=== PATIENT | female | born 1955 | race Caucasian/White ===

== ENCOUNTER → 2020-02-01 | Outpatient (CLI) | payer BC | LOC: MC.RAD 10:35 | DX: Z12.31 Encounter for screening mammogram for malignant neoplasm of breast (principal) ==

== ENCOUNTER 2020-12-26 07:44 | Day surgery (SDC) | payer BC ==
[~2020-12-26] VITALS: Ht 162.6 cm; Wt 64.5 kg
[2020-12-26 08:40] VITALS: BP 131/98; PULSE 85; TEMP 96.4
[2020-12-26] MEDS ORDERED: CYANOCOBAL1000 MCG/1 IM (08:47)
[2020-12-26] MEDS ORDERED: MAXALT MLT10 MG/TAB PO (08:47)
[2020-12-26] MEDS ORDERED: STELARA90 MG/ML SQ (08:48)
[2020-12-26] MEDS ORDERED: IMURAN 50MG TAB50 MG PO (08:48)
[2020-12-26] MEDS ORDERED: COZAAR 25MG25 MG/TAB PO (08:49)
[2020-12-26] MEDS ORDERED: EFFEXOR XR75 MG/CAP PO (08:59)
[2020-12-26] MEDS ORDERED: TOPAMAX 100MG100 M1 PO (08:59)
[2020-12-26] MEDS ORDERED: VITAMIND3 5000 PO (09:00)
[2020-12-26] MEDS ORDERED: ANTI-DIARRHEAL2 MG PO (09:00)
[2020-12-26] MEDS ORDERED: CALCIUM 600-D 61 TAB PO (09:01)
[2020-12-26] MEDS ORDERED: OCUVITE1 TA1 PO (09:02)
[2020-12-26] MEDS ORDERED: FISH OIL1000 MG PO (09:04)
[2020-12-26 09:45] VITALS: BP 108/92; PULSE 81; TEMP 97.7
--- NOTE | 2020-12-26 09:45 | NUR ---
4185- PATIENT BROUGHT BACK TO ENDO ROOM 4 VIA CART. PLACED ON MONITORS, VITAL SIGNS STABLE. MATTIE RN AT BEDSIDE FOR REPORT. AT BEDSIDE TO DRIVE PATIENT HOME. DENIES PAIN OR NAUSEA. IV INFUSING INTO RIGHT AC WITHOUT DIFFICULTY. PATIENT REQUESTS WATER AND MUFFIN. CALL [facility] WITHIN REACH, WARM BLANKET PROVIDED. WILL MONITOR.
[2020-12-26 10:00] VITALS: BP 106/89; PULSE 85
[2020-12-26 10:15] VITALS: BP 127/79; PULSE 83
--- NOTE | 2020-12-26 10:15 | NUR ---
VITAL SIGNS STABLE. PATIENT TOLERATING FOOD AND DRINK WITHOUT DIFFICULTY. DR. BARBOSA AT BEDSIDE TO DISCUSS FINDINGS. PATIENT STATES SHE WOULD LIKE TO GO HOME. IV REMOVED, INTACT. PATIENT TO GET DRESSED AT THIS TIME.
--- NOTE | 2020-12-26 10:30 | NUR ---
DISCHARGE INSTRUCTIONS REVIEWED WITH PATIENT AND FAMILY. OFFICE NUMBER PROVIDED. BROUGHT DOWN TO LOBBY VIA WHEEL CHAIR. PATIENT TO BE DRIVEN HOME BY . ALL BELONGINGS IN HAND.
== END 2020-12-26 10:30 | disposition home or self-care (01) ==
LOC: SDCO 07:44
DX: K56.699 Other intestinal obstruction unspecified as to partial versus complete obstruction (principal); K62.4 Stenosis of anus and rectum; K63.3 Ulcer of intestine; K50.80 Crohn's disease of both small and large intestine without complications; I10 Essential (primary) hypertension; G43.909 Migraine, unspecified, not intractable, without status migrainosus; E56.9 Vitamin deficiency, unspecified; F41.9 Anxiety disorder, unspecified; Z98.0 Intestinal bypass and anastomosis status; Z79.899 Other long term (current) drug therapy
CPT/HCPCS: J2704; J7120

== ENCOUNTER → 2023-03-25 | Outpatient (CLI) | payer MEDICARE, OTHER ==
[~2023-03-25] MED LIST: ANTI-DIARRHEAL2 MG PO; CALCIUM 600-D 61 TAB PO; COZAAR 25MG25 MG/TAB PO; CYANOCOBAL1000 MCG/1 IM; EFFEXOR XR75 MG/CAP PO; FISH OIL1000 MG PO; IMURAN 50MG TAB50 MG PO; MAXALT MLT10 MG/TAB PO; OCUVITE1 TA1 PO; STELARA90 MG/ML SQ; TOPAMAX 100MG100 M1 PO; VITAMIND3 5000 PO
== END ==
LOC: MC.RAD 11:03
DX: Z12.31 Encounter for screening mammogram for malignant neoplasm of breast (principal)

== ENCOUNTER 2023-05-14 13:40 | Outpatient (RCR) | payer MEDICARE, OTHER ==
[~2023-05-14] VITALS: Ht 162.6 cm; Wt 62.3 kg
[2023-05-14] MEDS ORDERED: Romosozumab-aqqg 210 MG/2.34 ML 2-Syringe KIT SQ ONE (14:00)
[2023-05-14] MEDS ORDERED: EVENITY (2210 MG/2.3 SQ (14:36)
[2023-05-14 14:40] VITALS: BP 160/85; PULSE 90; TEMP 98.5
== END 2023-05-14 14:30 | disposition home or self-care (01) ==
LOC: EUO 13:40
DX: M81.0 Age-related osteoporosis without current pathological fracture (principal)
CPT/HCPCS: J3111

== ENCOUNTER 2023-06-17 20:03 | Inpatient (IN) | payer MEDICARE, OTHER ==
[~2023-06-17] VITALS: Ht 165.1 cm; Wt 61.5 kg
[~2023-06-17 20:03] MED LIST changes: +EVENITY (2210 MG/2.3 SQ
[2023-06-17 20:30] LABS: BASO # 0.1 K/mm3 (0.0-0.2); BASO % 0.7 % (0.0-2.0); EOS # 0.1 K/mm3 (0.0-0.7); EOS % 0.9 % (0.0-4.0); GRAN % 73.7 % (42.2-75.2); HEMATOCRIT 48.8 % (37.0-47.0); HEMOGLOBIN 16.6 g/dl (12.5-16.0); LYMPH # 2.5 K/mm3 (1.2-3.4); LYMPH % 16.6 % (20.0-51.0); MEAN CELL VOLUME 94 fl (80.0-100.0); MEAN CORPUSCULAR HEMOGLOBIN 32 pg (27-31); MEAN CORPUSCULAR HGB CONC 34 g/dl (33.0-37.0); MEAN PLATELET VOLUME 9.4 fl (7.4-10.4); MONO # 1.1 K/mm3 (0.1-0.6); MONO % 7.2 % (1.7-9.3); PLATELET COUNT 305 K/mm3 (130-400); RED BLOOD COUNT 5.21 M/mm3 (4.10-5.30)
[2023-06-17] MEDS ORDERED: LR 1,000 ML IV ONE (20:30)
[2023-06-17] MEDS ORDERED: Ondansetron 4 MG/2 ML VIAL IV ONE (20:30)
[2023-06-17] MEDS ORDERED: Morphine 4 MG/ML VIAL IV ONE (20:30)
[2023-06-17 20:56] LABS: ALBUMIN 4.2 g/dL (3.4-4.8); BILIRUBIN,TOTAL 0.6 mg/dL (0.2-1.2); CALCIUM 9.2 mg/dL (8.4-10.2); CREATININE, serum 0.86 mg/dL (0.57-1.11); POTASSIUM 3.6 mEq/L (3.5-4.5); TOTAL PROTEIN 7.3 g/dl (6.2-8.1)
[2023-06-17 21:00] VITALS: BP_SYST 157
[2023-06-17] MEDS ORDERED: NS 50 ML IV SCH (21:07)
[2023-06-17] MEDS ORDERED: Iohexol 300 - 100 ML VIAL IV ONE (21:07)
[2023-06-17] MEDS ORDERED: methylPREDNISolone Sod Succ 40 MG/ML VIAL IV ONE (22:15)
[2023-06-17] MEDS ORDERED: metroNIDAZOLE 100 ML IV ONE (22:15)
[2023-06-17] MEDS ORDERED: methylPREDNISolone Sod Succ 40 MG/ML VIAL IV SCH (22:30)
[2023-06-17] MEDS ORDERED: *Potassium Replacement Protocol MC SCH (22:30)
[2023-06-17] MEDS ORDERED: Potassium Chloride 100 ML IV SCH (22:30)
[2023-06-17] MEDS ORDERED: LR 1,000 ML IV SCH (22:30)
[2023-06-17] MEDS ORDERED: Morphine 4 MG/ML VIAL IV PRN (22:45)
--- NOTE | 2023-06-17 23:34 | NUR ---
pt arrived to room 347 at 2315. pt scooted to the bed without issue. pt vital signs stable. pt ambulated to bathroom with sba and steady gait. pt ivf running to left ac iv without issue. pt admission, physical assessment, and med rec complete. call light in reach. all needs met at this time.
[2023-06-17 23:36] VITALS: BP 157/77; PULSE 94; TEMP 98.2
[2023-06-17 23:37] VITALS: BP_SYST 157
[2023-06-18] VITALS (12 sets, daily range): BP systolic 124–169; BP diastolic 83–102; PULSE 79–104; TEMP 98.2–98.4
[2023-06-18] MEDS ORDERED: STELARA45 MG/0.1 SQ (00:12)
[2023-06-18] MEDS ORDERED: IMURAN 50MG TAB50 MG PO (00:13)
[2023-06-18] MEDS ORDERED: COZAAR 25MG25 MG/TAB PO (00:14)
[2023-06-18] MEDS ORDERED: HYDROmorphone 0.5 MG/0.5 ML SYRINGE IV PRN (00:15)
[2023-06-18] MEDS ORDERED: Losartan 25 MG TAB PO SCH (02:25)
[2023-06-18] MEDS ORDERED: azaTHIOprine 50 MG TAB PO SCH (02:25)
[2023-06-18] MEDS ORDERED: azaTHIOprine 25 MG TAB PO SCH (02:31)
[2023-06-18] MEDS ORDERED: Metoprolol Tartrate 5 MG/5 ML VIAL IV SCH (03:30)
--- NOTE | 2023-06-18 06:12 | NUR ---
pt resting in bed well. pt denies pain after prn dilaudid dose. pt denies nausea after prn compezine dose. ivf continue running to iv without issue. call light in reach. all needs met at this time.
[2023-06-18 06:23] LABS: MEAN CELL VOLUME 92 fl (80.0-100.0); MEAN CORPUSCULAR HEMOGLOBIN 32 pg (27-31); MEAN CORPUSCULAR HGB CONC 35 g/dl (33.0-37.0); MEAN PLATELET VOLUME 9.8 fl (7.4-10.4); PLATELET COUNT 251 K/mm3 (130-400); REDCELL DISTRIBUTION WIDTH-CV 13.1 % (11.5-14.5)
[2023-06-18 06:37] LABS: CALCIUM 8.2 mg/dL (8.4-10.2); CREATININE, serum 0.76 mg/dL (0.57-1.11); POTASSIUM 4.3 mEq/L (3.5-4.5)
[2023-06-18 07:24] LABS: BAND 12 % (0-10); LYMPHOCYTE 5 % (20.0-51.0); MYELOCYTE 1 % (0-0); NEUTROPHILS 80 % (42.0-75.2)
[2023-06-18 07:25] LABS: PLATELET ESTIMATE NORMAL (NORMAL)
[2023-06-18] MEDS ORDERED: Pantoprazole 40 MG in NS 10 ML IV SCH (09:00)
--- NOTE | 2023-06-18 09:45 | NUR ---
PT RESTING IN BED WITH NO PAIN. PT STATES LAST BM 06/16 AT 1800, NOT PASSING GAS, AND SLIGHT TENDERNESS ON ABDOMEN DURING ASSESSMENT. PT REMAINS NPO, STEADY GAIT AROUND ROOM. PT CONTINUES TO REFUSE NG PLACEMENT. NO NEEDS AT THIS TIME, PT REQUESTING TO SLEEP. WILL CONTINUE TO MONITOR.
[2023-06-18] MEDS ORDERED: metroNIDAZOLE 100 ML IV SCH (10:30)
--- NOTE | 2023-06-18 14:58 | NUR ---
coke worker met with patient to discuss discharge planning. Patient lives in [place] with her , Oneil, Gayle# [phone]. PCP is Dr. Evans, pharmacy is [facility]. Patient reports she had issues with affording [facility] but has sorted this out with her PCP/pharmacy. No DPOA-HC and is not interested in completing one at this time. Patient reports she has a walker at home but does not use it. Patient reports to be independent with ADLS and is able to transport herself to and from appointments. Patient would like to return home at time of discharge. Discharge plan: Home
--- NOTE | 2023-06-18 17:20 | NUR ---
DR. BAH NOTIFIED OF INCREASED BP, ORDERS PLACED.
[2023-06-18] MEDS ORDERED: hydrALAZINE 20 MG/ML 1 ML VIAL IV PRN (17:30)
--- NOTE | 2023-06-18 19:00 | NUR ---
VERBAL ORDERS FROM DR. BAH TO GIVE PRN HYDRALAZINE WITH SBP OF 169 ALTHOUGH PERAMETERS STATE SBP>170. WILL CONTINUE TO MONTIOR.
--- NOTE | 2023-06-18 19:01 | NUR ---
report received from aleida novak. pt resting in bed and eating dinner. call light in reach. all needs met at this time.
[2023-06-18] MEDS ORDERED: Topiramate 100 MG TAB PO SCH (21:00)
[2023-06-18] MEDS ORDERED: Acetaminophen Oral Susp 325 MG/10.15 ML UD PO PRN (21:45)
--- NOTE | 2023-06-18 22:02 | NUR ---
shift assessment complete, see documentation. pt tolerated hs meds well. pt c/o of headache. prn tylenol administered per orders. abx started and running without issue. call light in reach. all needs met at this time.
--- NOTE | 2023-06-18 23:33 | NUR ---
pt reporting increased pain. prn dilaudid administered per orders. call light in reach. all needs met at this time.
[2023-06-19] VITALS (8 sets, daily range): BP systolic 138–173; BP diastolic 84–95; PULSE 82–107; TEMP 97.7–98.6
[2023-06-19] MEDS ORDERED: diphenhydrAMINE 50 MG/ML 1 ML VIAL IV ONE (03:45)
--- NOTE | 2023-06-19 03:55 | NUR ---
pt continues c/o headache and is now very anxious. updated program rep elaina. new order for one time dose of benadryl and compazine iv. prn iv dilaudid administered as well. pt had one emesis episode and is now resting in bed. call light in reach. all needs met at this time.
[2023-06-19 06:43] LABS: BASO % 0.5 % (0.0-2.0); EOS # 0.1 K/mm3 (0.0-0.7); EOS % 0.9 % (0.0-4.0); GRAN # 5.6 K/mm3 (1.4-6.5); GRAN % 64.6 % (42.2-75.2); HEMATOCRIT 41.5 % (37.0-47.0); HEMOGLOBIN 14.1 g/dl (12.5-16.0); LYMPH # 1.9 K/mm3 (1.2-3.4); LYMPH % 21.4 % (20.0-51.0); MEAN CELL VOLUME 93 fl (80.0-100.0); MEAN CORPUSCULAR HEMOGLOBIN 32 pg (27-31); MEAN CORPUSCULAR HGB CONC 34 g/dl (33.0-37.0); MEAN PLATELET VOLUME 9.6 fl (7.4-10.4); MONO # 1.1 K/mm3 (0.1-0.6); MONO % 12.1 % (1.7-9.3); PLATELET COUNT 254 K/mm3 (130-400); RED BLOOD COUNT 4.47 M/mm3 (4.10-5.30); REDCELL DISTRIBUTION WIDTH-CV 13.4 % (11.5-14.5)
[2023-06-19 06:59] LABS: CALCIUM 8.1 mg/dL (8.4-10.2); CREATININE, serum 0.78 mg/dL (0.57-1.11); POTASSIUM 3.8 mEq/L (3.5-4.5)
[2023-06-19] MEDS ORDERED: Potassium Bicarbonate/Citrate 20 MEQ Effervescent TAB PO ONE (08:00)
[2023-06-19] MEDS ORDERED: CIPRO 500MG TA500 MG PO (11:26)
[2023-06-19] MEDS ORDERED: FLAGYL500 MG PO (11:27)
[2023-06-19] MEDS ORDERED: PREDNISONE10 MG PO (11:28)
--- NOTE | 2023-06-19 13:29 | NUR ---
PT RESTING IN BED WITH NO PAIN. STEADY GAIT AROUND ROOM, PASSING GAS BUT NO BM. TOLERATING DEIT WELL AND ADVANCED TO LOW FIBER DIET. NO NEEDS AT THIS TIME. WILL CONTINUE TO MONITOR.
--- NOTE | 2023-06-19 13:35 | NUR ---
DISCHARGE INSTRUCTIONS TO PATIENT AND FAMILY. DISCUSSED FOLLOW UP INSTRUCTIONS, NEW MEDICATIONS, AND SIGNS OF OBSTRUCTION. NO QUESTIONS AT THIS TIME. IV REMOVED. PT AND FAMILY ESCORTED OUT OF BUILDING PER WHEELCHAIR.
== END 2023-06-19 13:23 | disposition home or self-care (01) | DRG 386 ==
LOC: COL.ER 20:03 → SURG 22:26
PROVIDERS: Emergency Medicine; Nurse Practitioner Family; ADMIT Internal Medicine
DX: K50.012 Crohn's disease of small intestine with intestinal obstruction (principal); K56.600 Partial intestinal obstruction, unspecified as to cause; R65.10 Systemic inflammatory response syndrome (SIRS) of non-infectious origin without acute organ dysfunction; M81.0 Age-related osteoporosis without current pathological fracture; I10 Essential (primary) hypertension; E53.8 Deficiency of other specified B group vitamins; E87.6 Hypokalemia; N83.201 Unspecified ovarian cyst, right side; G43.909 Migraine, unspecified, not intractable, without status migrainosus; Z88.0 Allergy status to penicillin; Z90.49 Acquired absence of other specified parts of digestive tract; Z90.89 Acquired absence of other organs; Z79.899 Other long term (current) drug therapy; Z87.891 Personal history of nicotine dependence
CPT/HCPCS: C9113; J0360; J0744; J0780; J1170; J1200; J1650; J1836; J2270; J2405; J2919; J3480; J7120; Q9967

== ENCOUNTER 2023-07-09 13:41 | Outpatient (CLI) | payer MEDICARE, OTHER ==
[~2023-07-09] VITALS: Ht 165.1 cm; Wt 59.0 kg
[~2023-07-09 13:41] MED LIST changes: +CIPRO 500MG TA500 MG PO; +FLAGYL500 MG PO; +PREDNISONE10 MG PO; +STELARA45 MG/0.1 SQ
[2023-07-09] MEDS ORDERED: Romosozumab-aqqg 210 MG/2.34 ML 2-Syringe KIT SQ ONE (14:00)
[2023-07-09 14:12] VITALS: BP 114/77; PULSE 85; TEMP 97.7
== END 2023-07-09 14:14 | disposition home or self-care (01) ==
LOC: EUO 13:41
DX: M81.0 Age-related osteoporosis without current pathological fracture (principal)
CPT/HCPCS: J3111

== ENCOUNTER 2023-09-03 13:35 | Outpatient (RCR) | payer MEDICARE, OTHER ==
[~2023-09-03] VITALS: Ht 165.1 cm; Wt 59.8 kg
[2023-09-03] MEDS ORDERED: Romosozumab-aqqg 210 MG/2.34 ML 2-Syringe KIT SQ ONE (14:00)
[2023-09-03 14:04] VITALS: BP 159/94; PULSE 88; TEMP 98
== END 2023-09-03 14:16 ==
LOC: EUO 13:35
DX: M81.0 Age-related osteoporosis without current pathological fracture (principal)
CPT/HCPCS: J3111

== ENCOUNTER 2023-11-26 13:19 | Outpatient (CLI) | payer MEDICARE, OTHER ==
[~2023-11-26] VITALS: Ht 165.1 cm; Wt 60.6 kg
[2023-11-26 13:32] VITALS: BP 146/90; PULSE 80; TEMP 98.3
[2023-11-26] MEDS ORDERED: Romosozumab-aqqg 210 MG/2.34 ML 2-Syringe KIT SQ ONE (13:45)
--- NOTE | 2023-11-26 14:05 | NUR ---
PT TOLERATED INJECTIONS WELL. INJECTIONS ADMINISTERED BY BOAT RIDE OPERATOR PREETHI WHILE SUPERVISED BY THIS RN. PT AMBULATED INDEPENDENTLY TO [facility]. NEXT APPOINTMENT MADE. VS REMAINED WITHIN NORMAL LIMITS. PT FREE FROM ACUTE CONCERNS AND COMPLAINTS.
== END 2023-11-26 14:06 | disposition home or self-care (01) ==
LOC: EUO 13:19
DX: M81.0 Age-related osteoporosis without current pathological fracture (principal)
CPT/HCPCS: J3111

== ENCOUNTER 2023-12-24 13:25 | Outpatient (CLI) | payer MEDICARE, OTHER ==
[~2023-12-24] VITALS: Ht 165.1 cm; Wt 61.9 kg
[2023-12-24 13:30] VITALS: BP 143/87; PULSE 82; TEMP 97.9
[2023-12-24] MEDS ORDERED: Romosozumab-aqqg 210 MG/2.34 ML 2-Syringe KIT SQ ONE (14:00)
== END 2023-12-24 14:30 | disposition home or self-care (01) ==
LOC: EUO 13:25
DX: M81.0 Age-related osteoporosis without current pathological fracture (principal)
CPT/HCPCS: J3111